=== PATIENT | female | born 1980 | race Caucasian/White ===

== ENCOUNTER 2018-05-12 07:37 | Day surgery (SDC) | payer MEDICAID ==
[~2018-05-12 07:37] MED LIST: Midazolam 1 MG/ML 2 ML SDV ONE; Propofol 200 MG/20 ML SDV ONE; fentaNYL 100 MCG/2 ML SDV ONE
[2018-05-12] MEDS ORDERED: Sodium Chloride 0.9% 1,000 ML IV SCH ×2 (08:33→10:15)
[2018-05-12] MEDS ORDERED: Propofol 200 MG/20 ML SDV ONE (09:03)
[2018-05-12 10:17] VITALS: BP 120/79
--- NOTE | 2018-05-13 08:20 | OR ---
DATE OF PROCEDURE: 05/12/2018 PROCEDURE PERFORMED: Colonoscopy. FINDINGS: 1. Significant diverticulosis, mostly limited to the sigmoid colon. 2. No evidence of old or new blood. COMPLICATIONS: None. JEWELRY SALES REPRESENTATIVE: None. ANESTHESIA: MAC. PREOPERATIVE DIAGNOSIS: Diarrhea/concern for gastrointestinal bleeding. POSTOPERATIVE DIAGNOSIS: Diarrhea/concern for gastrointestinal bleeding. RISKS: Risks, benefits, alternatives, and limitations including, but not limited to infection, bleeding, and perforation were explained to the patient, who wished to proceed. PROCEDURE IN DETAIL: The patient was placed in left lateral decubitus position. Digital rectal exam was performed without abnormality. The scope was introduced and advanced atraumatically to the ileocecal valve. Photo was taken. Due to the concerns of irritable/inflammatory bowel, random biopsies would be performed of the ascending colon and of the rectum using cold biopsy forceps. Diverticulosis would be described as moderate, limited mostly to the sigmoid colon, and no abnormalities on retroflex. The patient tolerated the procedure well. Aquiles Kinsey MD /[id number]
== END 2018-05-12 11:10 | disposition home or self-care (01) ==
LOC: JP.SDS 07:37
PROVIDERS: ATTEND Surgery
DX: R19.7 Diarrhea, unspecified (principal); K57.30 Diverticulosis of large intestine without perforation or abscess without bleeding; E66.9 Obesity, unspecified; Z88.1 Allergy status to other antibiotic agents; Z91.041 Radiographic dye allergy status; Z79.899 Other long term (current) drug therapy; Z68.35 Body mass index [BMI] 35.0-35.9, adult
CPT/HCPCS: 45378; J2250; J2704; J3010; J7030